=== PATIENT | male | born 1945 | race Caucasian/White ===

== ENCOUNTER → 2020-07-21 13:42 | Outpatient (ROUT) | payer MEDICARE, OTHER, SELFPAY ==
[2020-07-21 14:04] LABS: Aspartate Aminotransferase 26 IU/L (17-59); Blood Urea Nitrogen 16 mg/dL (9-20); Calcium 8.9 mg/dL (8.4-10.2); Carbon Dioxide 29 mmol/L (22-32); Chloride 103 mmol/L (98-107); Cholesterol 178 mg/dL (140-199); Estimated Glomerular Filt Rate > 60.0 mL/min (>60); Glucose 123 mg/dL (80-110); HDL Cholesterol 59 mg/dL (40-60); HEMOLYSIS < 15 (0-50); LDL Cholesterol Calculated 102 mg/dL (<100); Potassium 4.1 mmol/L (3.4-5.1); Sodium 136 mmol/L (137-145); Triglycerides 87 mg/dL (35-150)
[2020-07-21 14:05] LABS: Hemoglobin A1C% w Est Avg Glu 6.2 % (4.0-6.0)
[2020-07-21 14:31] LABS: Prostate Specific Antigen 2.84 ng/mL (0.10-4.00)
== END ==
PROVIDERS: Visit Provider Internal Medicine
DX: R73.01 Impaired fasting glucose (principal)
CPT/HCPCS: 80048; 80061; 83036; 84153; 84450

== ENCOUNTER → 2021-02-27 10:55 | Outpatient (CLI) | payer MEDICARE, OTHER, SELFPAY ==
[2021-02-27 13:36] LABS: COVID19 -Nasal RAPID Negative (Negative)
== END ==
PROVIDERS: PCP Internal Medicine; Visit Provider Student in an Organized Health Care Education/Training Program
DX: Z20.822 Contact with and (suspected) exposure to COVID-19 (principal); Z01.812 Encounter for preprocedural laboratory examination
CPT/HCPCS: 87635; C9803

== ENCOUNTER 2021-03-01 07:45 | Day surgery (SDC) | payer MEDICARE, OTHER, SELFPAY ==
[2021-03-01 08:15] VITALS: BP 127/74; PULSE 64; RESP 16; TEMP 36.4; O2SAT 99; BMI 26.4
--- NOTE | 2021-03-01 09:07 | PM.HP.1 ---
History of Present Illness History of Present Illness Chief complaint: SCREENING COLONOSCOPY Patient History Family & Social History Social History: household members spouse Tobacco & Substance use: Smoking Status Never smoker alcohol intake frequency a few times a month Substance Use Type does not use Meds Home Medications and Allergies Home Medications Medication Instructions Recorded Confirmed Type losartan 50 mg PO DAILY 03/01/21 03/01/21 History simvastatin 20 mg PO DAILY 03/01/21 03/01/21 History Allergies Allergy/AdvReac Type Severity Reaction Status Date / Time No Known Drug Allergies Allergy Verified 03/01/21 08:09 Review of Systems Review of Systems ROS: Yes All systems reviewed with the patient and are negative except as otherwise documented Exam Vital Signs (past 8 hours): - 03/01/21 08:15 Temperature 97.5 F L Pulse Rate 64 Respiratory Rate 16 Blood Pressure 127/74 Pulse Oximetry 99 Oxygen Delivery Method Room Air Narrative Exam Narrative: Awake alert and oriented x3, pupils equal round reactive to light, oropharynx clear, heart regular rate and rhythm, lungs clear to auscultation bilaterally, abdomen nontender and nondistended, extremities without edema, no gross neurologic deficits noted Assessment & Plan Assessment & Plan narrative: Colon cancer screening for colonoscopy COVID-19 COVID-19 status: Negative
[2021-03-01] MEDS: fentaNYL 250 MCG/5 ML INJ IV (09:13)
[2021-03-01] MEDS: MIDAZOLAM 5 MG/5 ML VIAL IV (09:13)
--- NOTE | 2021-03-01 09:28 | PM.OP.ENDO ---
Operative Date/Time/Diagnoses Date of procedure: 03/01/21 Procedure & Clinicians Study performed: Diagnostic colonoscopy Moderate conscious sedation was administered by the endoscopy nurse and supervised by the endoscopist. The following parameters were monitored: Oxygen saturation, heart rate, blood pressure, and response to care. 4 mg midazolam and 100 mcg fentanyl given. Same procedure as scheduled: Yes Indications: Colon cancer screening. Last colonoscopy was approximately 10 years ago. Procedure Notes Procedure in detail: Prior to the procedure, history and physical was performed, and patient medications and allergies were reviewed. Preprocedure nursing history and assessment was reviewed. Patient identification and proposed procedure were verified by the physician and nurse in the procedure room. The physical status of the patient was reassessed after the procedure. After informed consent was obtained including risks, benefits, and alternatives, the scope was passed under direct vision. Throughout the procedure, the patient's blood pressure, pulse, and oxygen saturations were monitored continuously. The colonoscope was introduced through the anus and advanced to the cecum as identified by the appendiceal orifice and ileocecal valve. The patient tolerated the procedure well. Bowel prep was deemed adequate to detect polyps greater than 5 mm. The perianal and digital rectal examinations were unremarkable. Retroflexion in the rectum was unrevealing. The entire examined colon was normal appearing. Impression: Normal appearing colon No specimens taken Sedation minutes: 15 Specimen(s): none sent Complications: other (EBL 0. No complications) Post-procedure Plan for aftercare: No recommendation with regards to repeating a colonoscopy for screening purposes given advanced age. Resume home medications Resume previous diet Patient has a contact number available for emergencies. The signs and symptoms of potential delayed complications were discussed with the patient. Return to normal activities tomorrow. Written discharge instructions were provided to the patient. Discharge home with escort
[2021-03-01 09:32] VITALS: BP 108/57; PULSE 62; RESP 12; TEMP 36.2; O2SAT 94
[2021-03-01 09:37] VITALS: BP 108/54; PULSE 62; RESP 12; O2SAT 93
[2021-03-01 09:42] VITALS: BP 112/58; PULSE 60; RESP 11; O2SAT 93
[2021-03-01 09:47] VITALS: BP 124/64; PULSE 73; RESP 14; TEMP 36.4; O2SAT 94
[2021-03-01 09:50] VITALS: BP 127/74; PULSE 64; RESP 14; TEMP 36.4; O2SAT 99
== END 2021-03-01 10:04 | disposition home or self-care (01) ==
PROVIDERS: PCP Internal Medicine; Referring Provider Internal Medicine; Visit Provider Internal Medicine
PROC: 0DJD8ZZ Inspection of Lower Intestinal Tract, Via Natural or Artificial Opening Endoscopic (ICD-10-PCS; CPT 45378; principal; 2021-03-01 09:00)
DX: Z12.11 Encounter for screening for malignant neoplasm of colon (principal)
CPT/HCPCS: G0121; J2250; J3010

== ENCOUNTER → 2022-02-23 09:03 | Outpatient (CLI) | payer MEDICARE, OTHER, SELFPAY ==
--- NOTE | 2022-02-23 | DI.RAD.S_ITS ---
PROCEDURE: FL BARIUM SWALLOW W SPEECH INDICATIONS: Other dysphagia COMPARISON: None. TECHNIQUE: Examination was conducted in conjunction with speech pathology per standard protocol. In the lateral projection, filming was performed of the patient swallowing. AP projection filming may also be performed with patient swallowing. COMPARISON: FINDINGS: Function: The oral preparatory phase appears normal, with proper containment. The subsequent oral propulsive phase, pharyngeal phase, and esophageal phase of swallowing also appear normal with all proffered substances. No laryngotracheal penetration or aspiration. No pathologic vallecular pooling. There appears to be a moderate hiatal hernia. There is esophageal dysmotility. A swallowed radiopaque tablet did not readily passed into the gastric lumen, with holdup in the distal esophagus. There is irregularity of the mucosal surface of the gastroesophageal junction. Morphology: No cricopharyngeal bar is identified. No cervical esophageal webs. No Zenker's diverticulum. No strictures. IMPRESSION: 1. No evidence of laryngeal penetration, or aspiration. 2. Hiatal hernia. 3. Irregularity of the mucosa at the gastroesophageal junction. Initial further assessment with endoscopy is recommended, to assess for neoplasm. Dictated by: Asim Segura M.D. on 02/23/2022 at 10:33 Approved by: Asim Segura M.D. on 02/23/2022 at 10:35
--- NOTE | 2022-02-23 10:52 | ST.SWALLOW ---
Visit Care Team Role Provider Type Devon Lundberg MD Primary Care Provider Physician Specialty: Internal Medicine Address: [address] [place] [address], [id number] Email: [email or web address] Cosmo Ruffin MD Attending Provider Physician Referring Provider Specialty: Ear, Nose, Throat Address: [address] [place] [address], [id number] Email: [email or web address] Modified Barium Swallow Study [employer] REFEREE Modified Barium Swallow Study Start: 02/23/22 10:21 Freq: Status: Active Protocol: Document 02/23/22 10:22 ZS (Rec: 02/23/22 10:52 ZS [id number]) Modified Barium Swallow Study Total Time Visit Start Time 09:30 Visit Stop Time 09:50 Total Visit Minutes 20 Visit Information Visit Number Initial Evaluation Insurance Information Medicare Referral Referring Physician Dr. Cosmo Ruffin Reason for Referral Bread and other carbohydrates getting caught in throat Setting Setting Outpatient Care Patient Information Identification Type Name Patient History Nguyễn is a 77 year old male who reported difficulty with swallowing bread and other carbohydrate consistencies. He stated these textures feel like they get caught in his throat and gestured to his base of neck/upper chest area. Nguyễn indicated it helps when he has some cold water prior to eating these consistencies and that he has not experienced as much difficulty with swallowing since he returned from [place]. Nguyễn reported no difficulty swallowing liquids. Subjective Observations Nguyễn was alert, cooperative, and agreed to participate in swallow study. Provided education regarding swallow study procedures and what to expect, to which Nguyễn indicated understanding. Patient Positioning Position View Lat-A/P Imaging Lateral View Textures Administered Trials Presented Thin Liquid via Cup,Pudding Thick Liquid via Spoon,Regular Textures Oral Phase Source: MBSIMP (TM) (C) Bolus Specific Scoring Grid Lip Closure No Impairment (WNL) Tongue Control During Bolus Hold Minimal Impairment Bolus Prep/Mastication No Impairment (WNL) Bolus Transport/Lingual Motion No Impairment (WNL) A/P Lingual Propulsion Delay No Oral Residue Mild Impairment Residue Clearing No Impairment (WNL) Nasal Regurgitation No Additional Oral Phase Observations Pt exhibited lip closure, mastication, and bolus transport WNL. Minimal posterior loss of bolus to base of tongue during tongue hold and this was only observed on the first trial. All other tongue holds exhibited no posterior loss of bolus. Mild oral residue observed following swallow, which pt cleared independently . Pharyngeal Phase Source: MBSIMP (TM) (C) Bolus Specific Scoring Grid Delayed Initiation of Pharyngeal Swallow Yes: bolus head at epiglottis Soft Palate Elevation No Impairment (WNL) Tongue Base Strength/Range of Motion No Impairment (WNL) Residue Along the Tongue Base No Laryngeal Elevation No Impairment (WNL) Anterior Hyoid Movement No Impairment (WNL) Epiglottic Range of Motion No Impairment (WNL) Vallecular Residue Yes: following solid trials only Clearance of Vallecular Residue WFL Laryngeal Vestibular Closure No Impairment (WNL) Pharyngeal Stripping Wave No Impairment (WNL) Pharyngeal Contraction No Impairment (WNL) Posterior Pharyngeal Wall Residue No Upper Esophageal Sphincter Opening No Impairment (WNL) Residue in the Pyriform Sinuses No Esophageal Clearance Upright Position Mild Impairment Pharyngoesophageal Backflow Observed Yes: minimal retrograde flow below PES Additional Pharyngeal Phase Observations Delayed initiation of swallow observed, with head of bolus at the level of the epiglottis . Laryngeal vestibular closure , anterior hyoid movement, and epiglottic movement were all WNL. No instances of aspiration or penetration observed. Mild residue observed in valleculea following solid trials, which was cleared with a second swallow. A/P View Textures Administered Trials Presented Thin Liquid via Cup,Regular Textures,Barium Tablet A/P View Observations Pharyngeal Contraction No Impairment (WNL) Esophageal Function Slowed Clearing Esophageal Clearance Upright Position Mild Impairment Esophageal Observations Esophageal Function Slowed movement of bolus through esophagus across all textures, with minimal retrograde flow below the level of the PES. All trials, except the tablet, had cleared the esophagus before the start of the next trial. The tablet did not clear the pt's esophagus by the end of the assessment, despite repeated swallows with water. Clinical Impressions Findings The pt presents with swallow function WNL. A mild delay in pharyngeal swallow initiation was present, though pt had appropriate airway protection despite delay. Residue observed in oral cavity and in valleculea, which pt cleared WFL. Slowed movement of bolus through esophagus across all trials, though each texture cleared, with the exception of the tablet, prior to the start of the following trial. Carbohydrate consistencies may present with further slowed movement due to tendency to form a more solid bolus than other food textures, and may be the cause of pt's discomfort. Recommended smaller bites of carbohydrate consistencies with liquid wash in between bites to aid in flow of bolus through esophagus. Pt may choose to pursue GI referral if he continues to have difficulty. Rehabilitation Potential Good Patient Appropriate for Therapy No Recommendations Diet Liquids Order Thin Diet Order Regular Medication Recommendation As Tolerated Aspiration Precautions Recommended Precautions Upright at 90 Degrees, Alternate Liquids/Solids,Small Bites/Sips Treatment Plan Recommended Referrals GI Consult Compensatory Strategies Recommendations Sitting Upright (90 deg),Small Bites and Sips,Alternate Liquids/Solids Placement Recommendation After Discharge Home
== END ==
PROVIDERS: PCP Internal Medicine; Referring Provider Otolaryngology; Visit Provider Otolaryngology
DX: R13.19 Other dysphagia (principal); K44.9 Diaphragmatic hernia without obstruction or gangrene
CPT/HCPCS: 74230; 92611

== ENCOUNTER → 2022-05-18 09:19 | Outpatient (CLI) | payer MEDICARE, OTHER, SELFPAY ==
[2022-05-18 11:27] LABS: COVID19 -Nasal RAPID Negative (Negative)
== END ==
PROVIDERS: PCP Internal Medicine; Visit Provider Surgery
DX: Z01.812 Encounter for preprocedural laboratory examination (principal); Z20.822 Contact with and (suspected) exposure to COVID-19
CPT/HCPCS: 87635; C9803

== ENCOUNTER 2022-05-21 07:53 | Day surgery (SDC) | payer MEDICARE, OTHER, SELFPAY ==
--- NOTE | 2022-05-21 | PATH_ITS ---
[facility] Accession Number: [id number] . 01 Material submitted: . PART A: duodenum - DUODENAL BIOPSY PART B: stomach - ANTRUM BIOPSY PART C: gastrointestinal site - GASTRIC POLYPS PART D: esophagus, E-G Junction - GE JUNCTION . 01 Diagnosis: A. Duodenum, Biopsy: Duodenal adenoma. No high-grade dysplasia or malignancy. See comment. . B. Antrum, Biopsy: Gastric mucosa with mild chronic inflammation. No evidence of Helicobacter pylori organisms on immunohistochemical evaluation. No evidence of intestinal metaplasia, dysplasia or malignancy. . C. Gastric Polyps, Biopsy: Fundic gland polyps. No evidence of Helicobacter pylori organisms on immunohistochemical evaluation. No evidence of intestinal metaplasia, dysplasia or malignancy. . D. GE Junction, Biopsy: Squamous mucosa with changes consistent with reflux alterations. No evidence of infectious organisms. No dysplasia or malignancy. [facility] 05/24/2022 1141 Local . 01 Comment: A. As part of ongoing vice president quality, this case is also reviewed by Dr. Dr. Jignesh Ayala, who concurs with the given interpretation. . 01 Electronically signed: . Stacie Mauricio MD, Pathologist NPI- [id number] . 01 Gross description: . Part A: DUODENAL BIOPSY: Received in formalin is 1 fragment(s) of savage, soft tissue measuring 0.3 x 0.2 x 0.2 cm submitted entirely in 1 cassette(s) Part B: ANTRUM BIOPSY: Received in formalin are 2 fragment(s) of savage, soft tissue measuring 0.2 x 0.2 x 0.2 cm to 0.3 x 0.2 x 0.2 cm submitted entirely in 1 cassette(s) Part C: GASTRIC POLYPS: Received in formalin are 4 fragment(s) of savage, soft tissue measuring 0.2 x 0.2 x 0.2 cm to 0.3 x 0.3 x 0.2 cm submitted entirely in 1 cassette(s) Part D: GE JUNCTION: Received in formalin are 3 fragment(s) of savage, soft tissue measuring 0.1 x 0.1 x 0.1 cm to 0.3 x 0.1 x 0.1 cm submitted entirely in 1 cassette(s) /[facility] 05/22/2022 0055 Local . 01 Microscopic: . B, C. An immunohistochemical stain was performed to evaluate for Helicobacter organisms and is negative. The control stain showed appropriate reactivity. . D. A PASF special stain was performed to evaluate for fungal organisms and is negative. The control stain showed appropriate reactivity. . . Technical Note: This test and its performance characteristics have been determined by [facility]. It has not been cleared or approved by the U.S. Food and Drug Administration. The FDA has determined that such clearance or approval is not necessary. This test is used for clinical purposes. It should not be regarded as investigational or for research. . 01 Pathologist provided ICD-10: K29.70, D13.2, D13.1 . 01 CPT . 663329, 501368, 344300, 361108, [id number], [id number] Specimen Comment: A courtesy copy of this report has been sent to [phone] Performed at: [address] [place] [address] [address] [place] [address], [place], [place] [id number] MD Jignesh Webb MD Phone: [phone]
[2022-05-21 08:40] VITALS: BP 157/72; PULSE 63; RESP 16; TEMP 36.1; O2SAT 96; BMI 28.9
[2022-05-21] MEDS: SODIUM CHLORIDE 0.9% 1,000 ML 84 ML IV (08:46)
--- NOTE | 2022-05-21 09:17 | PM.HP.1 ---
History of Present Illness History of Present Illness Date Patient Seen: 05/21/22 Time Patient Seen: 09:18 Chief complaint: EGD W/POSS BX & DILATION Narrative: I reviewed the note from May [address] Orta. No significant changes. Patient History Medical History Abnormal barium swallow Hepatitis A (~1968) Hiatal hernia Hyperlipidemia Hypertension Surgical History Anesthesia Broken arm (~2004) History of tonsillectomy (~1950) Family & Social History Family History Father Parkinson's disease Mother No problems noted. Brother Prostate cancer Sister Ovarian cancer Grandfather Stroke Grandmother Stroke Grandfather Stroke Social History: household members spouse Tobacco & Substance use: Smoking Status Never smoker alcohol intake frequency a few times a month Substance Use Type does not use Meds Home Medications and Allergies Home Medications Medication Instructions Recorded Confirmed Type losartan 50 mg tablet 50 mg PO DAILY 03/01/21 05/21/22 History simvastatin 20 mg tablet 20 mg PO DAILY 03/01/21 05/21/22 History albuterol sulfate 90 mcg/actuation See Rx Instructions .Route .COMPLEX 03/06/22 05/21/22 History aerosol inhaler (ProAir HFA) sildenafil 50 mg tablet 50 mg PO PRN PRN prn 03/06/22 05/21/22 History triamcinolone acetonide 55 mcg 2 spray intranasal DAILY 03/06/22 05/21/22 History nasal spray aerosol (Nasacort) Allergies Allergy/AdvReac Type Severity Reaction Status Date / Time No Known Drug Allergies Allergy Verified 05/21/22 08:38 Review of Systems Review of Systems ROS: Yes All systems reviewed with the patient and are negative except as otherwise documented Exam Vital Signs (past 8 hours): - 05/21/22 08:40 Temperature 96.9 F L Pulse Rate 63 Respiratory Rate 16 Blood Pressure 157/72 H Pulse Oximetry 96 Oxygen Delivery Method Room Air Oxygen Flow Rate 0 Oxygen Delivery Method Room Air Oxygen Flow Rate 0 Const General: cooperative HENMT Head: normal to inspection Eyes General: appearance normal, both eyes and all related structures Neck Neck: normal visual inspection Chest Chest: normal inspection of the chest Resp Effort & Inspection: normal respiratory effort Cardio Rate: regular rate GI Inspection: normal to inspection Skin General: no rashes or lesions noted Neuro General: patient alert and patient awake Extrem General: normal to inspection and no pedal edema Psych Appearance: grossly normal Assessment & Plan Assessment & Plan narrative: 77-year-old male with dysphagia abnormal contrast imaging. EGD is pursued today. Time Spent With Patient Critical Care time: I spent a total of [] minutes of critical care time on this patient's care today; this time is exclusive of procedural time.
--- NOTE | 2022-05-21 09:19 | PM.PREOP ---
Pre-operative Note COVID-19 COVID-19 status: Negative Result date/Date tested (Pos, Neg/Pending): 05/18/22 Criteria for continued procedure: Possibility delay results in more complex future surgery or treatment Interval Note History & Physical reviewed/Exam performed by Physician: Yes Changes to H&P: No ASA Class (for procedural sedation): II
--- NOTE | 2022-05-21 10:21 | PM.OP.EGD ---
Operative Date/Time/Diagnoses Date of procedure: 05/21/22 Time of procedure: 10:22 Pre-op diagnosis: Dysphagia Post-op diagnosis: same Procedure & Clinicians Study performed: EGD with biopsies Same procedure as scheduled: Yes Indications: Dysphagia Surgeon: Ran Shaw Procedure Notes SCOAP/Timeout: Done Procedure in detail: After the risks and benefits were explained, written and verbal informed consent was obtained. The patient was brought into the procedure room and placed into the left lateral decubitus position. Please see nurse agricultural education professor notes for sedation details. The scope was introduced into the mouth through the bite block and advanced under direct visualization to the 2nd portion of the duodenum. The scope was slowly withdrawn carefully examining the mucosa for any defects or lesions. Retroflexed views were accomplished in the stomach. The stomach was decompressed, the scope was then removed from the patient who tolerated the procedure well. Sedation minutes: 19 Complications: none Impression: 1. Duodenum: No significant mucosal pathology was appreciated throughout. However there was a small possible nodule in the 2nd portion of the duodenum and this was targeted for biopsy. 2. Stomach: Patient had a mild diffusely erythematous gastropathy. Biopsies were taken from the antrum for exclusion of Helicobacter infection. There were several scattered diminutive polyps in the body and fundus. A few of these were sampled for histopathologic analysis. Retroflexed views of the LES disclosed a small sliding hiatal hernia. 3. Esophagus: The squamocolumnar junction correlated with the top of the gastric folds. The GEJ was at about 34 cm from the incisors. The diaphragmatic pinchcock was at approximately 36 cm from the incisors. The patient had evidence of LA grade a erosive esophagitis and the mucosa on the cardia side of the GE junction appeared inflamed and irritated. I took several disruptive biopsies from the level of the GE junction which was characterized by a subtle non obstructing Schatzki's ring as well. The remainder of the esophagus was unremarkable. Endoscopic diagnosis 1. 2 cm hiatal hernia 2. LA grade A erosive esophagitis 3. Nonobstructing Schatzki's status post disruptive biopsies 4. Gastric polyps 5. Gastropathy 6. Duodenal nodule Post-procedure Plan for aftercare: 1. Await histopathology 2. Initiate omeprazole 20 mg daily. 3. Repeat EGD in 8 weeks to confirm mucosal healing and pursue biopsies of any persistent abnormalities at the GE junction/cardia. Disposition: PACU
[2022-05-21 10:27] VITALS: BP 106/63; PULSE 60; RESP 18; TEMP 37.1; O2SAT 94
[2022-05-21 10:31] VITALS: BP 112/68; PULSE 59; RESP 16; O2SAT 94
[2022-05-21 10:37] VITALS: BP 121/63; PULSE 63; RESP 18; O2SAT 96
--- NOTE | 2022-05-21 10:43 | SUR.PHASEI ---
Dr. Garcia came in to see pt. and talked to him. Pt states he understands everything.
[2022-05-21 10:44] VITALS: BP 117/76; PULSE 63; RESP 18; TEMP 36.6; O2SAT 95
== END 2022-05-21 10:59 | disposition home or self-care (01) ==
PROVIDERS: PCP Internal Medicine; Referring Provider Internal Medicine Gastroenterology; Visit Provider Internal Medicine Gastroenterology
PROC: 0DJ08ZZ Inspection of Upper Intestinal Tract, Via Natural or Artificial Opening Endoscopic (ICD-10-PCS; CPT 43235; principal; 2022-05-21 09:30)
DX: R13.10 Dysphagia, unspecified (principal); I10 Essential (primary) hypertension; J45.909 Unspecified asthma, uncomplicated; K44.9 Diaphragmatic hernia without obstruction or gangrene; K20.90 Esophagitis, unspecified without bleeding; K22.2 Esophageal obstruction; K31.9 Disease of stomach and duodenum, unspecified; K31.7 Polyp of stomach and duodenum; K29.50 Unspecified chronic gastritis without bleeding; D36.7 Benign neoplasm of other specified sites
CPT/HCPCS: 43239; J2704; J3010

== ENCOUNTER 2022-06-05 09:13 | Emergency (ER) | payer MEDICARE, OTHER, SELFPAY ==
[2022-06-05 09:18] VITALS: BP 180/84; PULSE 62; RESP 14; TEMP 36.6; O2SAT 96; BMI 28.5
[2022-06-05 09:19] VITALS: BP 180/84; PULSE 62; O2SAT 97
--- NOTE | 2022-06-05 09:22 | DI.RAD.S_ITS ---
PROCEDURE: XR CHEST 1V INDICATIONS: chest pain TECHNIQUE: One view of the chest was acquired. COMPARISON: None. FINDINGS: Surgical changes and devices: None. Lungs and pleura: Lungs are clear. No pleural effusions or pneumothorax. Mediastinum: Mediastinal contours appear normal. Heart size is normal. Bones and chest wall: No suspicious bony lesions. Overlying soft tissues appear unremarkable. IMPRESSION: No acute cardiopulmonary findings. Dictated by: Stephanie Bautista M.D. on 06/05/2022 at 9:49 Approved by: Stephanie Bautista M.D. on 06/05/2022 at 9:49
[2022-06-05 09:30] VITALS: BP 168/76; PULSE 63; RESP 20; O2SAT 98
[2022-06-05 09:45] LABS: Add Manual Diff / Slide Review NO; Basophils Absolute Auto 100 /uL (0-100); Basophils Percent Auto 0.7 % (0-2); Eosinophils Absolute Auto 300 /uL (0-450); Eosinophils Percent Auto 3.7 % (2-4); Hematocrit 44.3 % (41-53); Hemoglobin 15.4 g/dL (13.5-17.5); Lymphocytes Absolute Auto 1500 /uL (1100-4500); Lymphocytes Percent Auto 21.9 % (25-40); Mean Corpuscular HGB Conc 34.8 % (30-36); Mean Corpuscular Hemoglobin 29.2 PG (26-34); Monocytes Absolute Auto 600 /uL (0-900); Neutrophils Absolute Auto 4500 /uL (1500-7000); Neutrophils Percent Auto 65.7 % (50-75); Platelet Count 190 X10^3/uL (150-400); Red Blood Cell Count 5.28 X10^6/uL (4.5-5.9); Red Cell Distribution Width 13.5 % (11.6-14.8); White Blood Cell Count 6.9 X10^3/uL (4.5-11.0)
[2022-06-05 09:54] LABS: INR 0.9 (0.9-1.3); Prothrombin Time 10.7 SECONDS (10.1-12.7)
--- NOTE | 2022-06-05 09:54 | ED_ITS ---
HPI - Dizziness General Chief Complaint: Dizziness Stated Complaint: Dizzy spell Time Seen by Provider: 06/05/22 09:40 Source: patient Mode of arrival: Wheelchair History of Present Illness HPI Narrative: This 77-year-old gentleman with hypercholesterolemia and hypertension only comes to the emergency department today with dizziness. Says that began about 5 days ago while he was on a trip to [place] and noticed that while he was lying in bed he felt quite dizzy but then when he would get up it would extinguish and feel back to normal for the rest of the day. Today however when he arose the dizziness was much more prominent and it does not seem to be extinguishing. He says he feels a little bit better when he holds still but he still feels a swimming sensation and dizziness sensation with movement or sitting up. He does not have any injury, no other illness no fever no cough no headache no neck pain. No previous stroke. No cigarette smoking. No nausea. Related Data Home Medications Medication Instructions Recorded Confirmed losartan 50 mg tablet 50 mg PO DAILY 03/01/21 05/21/22 simvastatin 20 mg tablet 20 mg PO DAILY 03/01/21 05/21/22 albuterol sulfate 90 mcg/actuation See Rx Instructions .Route .COMPLEX 03/06/22 05/21/22 aerosol inhaler (ProAir HFA) sildenafil 50 mg tablet 50 mg PO PRN PRN prn 03/06/22 05/21/22 triamcinolone acetonide 55 mcg 2 spray intranasal DAILY 03/06/22 05/21/22 nasal spray aerosol (Nasacort) Previous Rx's Medication Instructions Recorded meclizine 25 mg tablet 25 mg PO BID PRN dizziness #10 tabs 06/05/22 Allergies Allergy/AdvReac Type Severity Reaction Status Date / Time No Known Drug Allergies Allergy Verified 06/05/22 09:23 Review of Systems Review of Systems Narrative: Complete review of systems is negative other than as noted above. Patient History Medical History Abnormal barium swallow Hepatitis A (~1968) Hiatal hernia Hyperlipidemia Hypertension Surgical History Anesthesia Broken arm (~2004) History of tonsillectomy (~1950) Family History Father Parkinson's disease Mother No problems noted. Brother Prostate cancer Sister Ovarian cancer Grandfather Stroke Grandmother Stroke Grandfather Stroke Social History household members: spouse Smoking Status: Never smoker Smoking Status: Never smoker alcohol intake frequency: holidays/special occasions only Substance Use Type: does not use Exam Narrative Exam Narrative: GENERAL: Alert, cooperative and in no distress. HEAD: Atraumatic. Normocephalic. EYES: Sclera are clear without icterus. Extraocular movements are full. ENT: No rhinorrhea. Oropharynx is moist. Mouth exam is benign. NECK: Supple. Full range of motion. CARDIOVASCULAR: Normal rate and rhythm without murmur gallop or rub. RESPIRATORY: Clear to auscultation. Breath sounds equal bilaterally. No wheezes, rales, or rhonchi. GASTROINTESTINAL: Abdomen soft, non-tender, nondistended. EXTREMITIES: No edema, full range of motion. No obvious trauma. BACK: Normal inspection, no CVA tenderness. NEURO: Hallpike maneuver reveals no nystagmus. He has a wide-based gait and seems unsteady when he is trying to walk. SKIN: No rash or erythema of visible areas PSYCH: Normally oriented. Normal range of affect. Appropriate behavior Initial Vital Signs Initial Vital Signs: Vital Signs Temperature 97.9 F 06/05/22 09:18 Pulse Rate 62 06/05/22 09:18 Respiratory Rate 14 06/05/22 09:18 Blood Pressure 180/84 H 06/05/22 09:18 Pulse Oximetry 96 06/05/22 09:18 Oxygen Delivery Method 06/05/22 09:18 Course Course Course Narrative: His physical examination does not fit precisely with benign positional vertigo and therefore I think it is incumbent upon me to prove that he does not have a posterior circulation stroke. Will order stroke protocol MRI. Orders Ordered: ED Orders 06/05/22 09:22 XR chest 1V Stat 06/05/22 09:27 EKG-12 Lead Stat 06/05/22 09:35 Complete Blood Count AUTO DIFF Stat Comprehensive Metabolic Panel Stat Lipase Stat Magnesium Stat Partial Thromboplastin Time Stat Prothrombin Time INR Stat Troponin & CK Cardiac Panel Stat 06/05/22 09:46 COVID19 -Nasal RAPID/Pre-Proc Stat 06/05/22 09:56 MR stroke Stat Vital Signs Vital signs: Vital Signs - 8 hr 06/05/22 09:18 06/05/22 09:19 06/05/22 09:19 Temperature 97.9 F Pulse Rate 62 62 Respiratory Rate 14 Blood Pressure 180/84 H 180/84 H Pulse Oximetry 96 97 Oxygen Delivery Method Room Air 06/05/22 09:30 06/05/22 09:30 Temperature Pulse Rate 63 Respiratory Rate 20 Blood Pressure 168/76 H Pulse Oximetry 98 Oxygen Delivery Method MDM - Dizziness Lab Data Result diagrams: 06/05/22 09:35 06/05/22 09:35 Labs: Lab Results 06/05/22 06/05/22 06/05/22 Range/Units 09:35 09:35 09:35 WBC 6.9 (4.5-11.0) X10^3/uL RBC 5.28 (4.5-5.9) X10^6/uL Hgb 15.4 (13.5-17.5) g/dL Hct 44.3 (41-53) % MCV 84.0 (80-100) fL MCH 29.2 (26-34) PG MCHC 34.8 (30-36) % RDW 13.5 (11.6-14.8) % Plt Count 190 (150-400) X10^3/uL Neut % (Auto) 65.7 (50-75) % Lymph % (Auto) 21.9 L (25-40) % [place] % (Auto) 8.0 (3-14) % Eos % (Auto) 3.7 (2-4) % Baso % (Auto) 0.7 (0-2) % Neut # (Auto) 4500 (7298-1690) /uL Lymph # (Auto) 1500 (6905-7015) /uL [place] # (Auto) 600 (0-900) /uL Eos # (Auto) 300 (0-450) /uL Baso # (Auto) 100 (0-100) /uL PT 10.7 (10.1-12.7) SECONDS INR 0.9 (0.9-1.3) APTT 26 (26-36) SECONDS Sodium 136 L (137-145) mmol/L Potassium 3.8 (3.4-5.1) mmol/L Chloride 103 (98-107) mmol/L Carbon Dioxide 27 (22-32) mmol/L BUN 16 (9-20) mg/dL Creatinine 0.99 (0.66-1.25) mg/dL Estimated GFR > 60 (>60) mL/min BUN/Creatinine Ratio 16.2 (6-22) Glucose 132 H (80-110) mg/dL Calcium 8.8 (8.4-10.2) mg/dL Magnesium 1.9 (1.6-2.3) mg/dL Total Bilirubin 1.0 (0.2-1.3) mg/dL AST 25 (17-59) IU/L ALT 17 (<50) IU/L Alkaline Phosphatase 59 (38-126) U/L Total Creatine Kinase 52 L (55-170) U/L CK-MB (CK-2) TNP CK-MB (CK-2) Rel Index TNP Troponin I < 0.012 (0.01-0.034) ng/mL Total Protein 7.2 (6.3-8.2) g/dL Albumin 4.0 (3.5-5.0) g/dL Globulin 3.2 (1.7-4.1) g/dL Albumin/Globulin Ratio 1.3 (1.0-2.8) Lipase 124 (23-300) U/L SARS-CoV-2 (PCR) (Negative) 06/05/22 Range/Units 09:46 WBC (4.5-11.0) X10^3/uL RBC (4.5-5.9) X10^6/uL Hgb (13.5-17.5) g/dL Hct (41-53) % MCV (80-100) fL MCH (26-34) PG MCHC (30-36) % RDW (11.6-14.8) % Plt Count (150-400) X10^3/uL Neut % (Auto) (50-75) % Lymph % (Auto) (25-40) % [place] % (Auto) (3-14) % Eos % (Auto) (2-4) % Baso % (Auto) (0-2) % Neut # (Auto) (1729-2159) /uL Lymph # (Auto) (9751-6075) /uL [place] # (Auto) (0-900) /uL Eos # (Auto) (0-450) /uL Baso # (Auto) (0-100) /uL PT (10.1-12.7) SECONDS INR (0.9-1.3) APTT (26-36) SECONDS Sodium (137-145) mmol/L Potassium (3.4-5.1) mmol/L Chloride (98-107) mmol/L Carbon Dioxide (22-32) mmol/L BUN (9-20) mg/dL Creatinine (0.66-1.25) mg/dL Estimated GFR (>60) mL/min BUN/Creatinine Ratio (6-22) Glucose (80-110) mg/dL Calcium (8.4-10.2) mg/dL Magnesium (1.6-2.3) mg/dL Total Bilirubin (0.2-1.3) mg/dL AST (17-59) IU/L ALT (<50) IU/L Alkaline Phosphatase (38-126) U/L Total Creatine Kinase (55-170) U/L CK-MB (CK-2) CK-MB (CK-2) Rel Index Troponin I (0.01-0.034) ng/mL Total Protein (6.3-8.2) g/dL Albumin (3.5-5.0) g/dL Globulin (1.7-4.1) g/dL Albumin/Globulin Ratio (1.0-2.8) Lipase (23-300) U/L SARS-CoV-2 (PCR) Negative (Negative) Imaging Data Chest x-ray: Radiologist's Impression: PROCEDURE:? XR CHEST 1V ? INDICATIONS:? chest pain ? TECHNIQUE:? One view of the chest was acquired.? ? COMPARISON:? None. ? FINDINGS:? ? Surgical changes and devices:? None.? ? Lungs and pleura:? Lungs are clear.? No pleural effusions or pneumothorax.? ? Mediastinum:? Mediastinal contours appear normal.? Heart size is normal.? ? Bones and chest wall:? No suspicious bony lesions.? Overlying soft tissues appear unremarkable.? ? IMPRESSION:? No acute cardiopulmonary findings. ? ? Dictated by: Stephanie Bautista M.D. on 06/05/2022 at 9:49 ? ? Approved by: Stephanie Bautista M.D. on 06/05/2022 at 9:49 ? Extremity x-ray #3: Radiologist's Impression: Stroke protocol MRI: IMPRESSION:? ? BRAIN MRI:? ? 1. No acute intracranial findings.? Specifically, no increased restricted diffusion to suggest acute or subacute infarct. ? 2. Mild findings likely associated with chronic microvascular ischemic changes.? ? BRAIN MR ANGIOGRAM:? ? 1. No stenosis, occlusion, or aneurysm.? ? NECK MR ANGIOGRAM:? ? 1. Mild stenosis at the origin of the right internal carotid artery (less than 50%).? No other stenosis, occlusion, or aneurysm. ? ? Dictated by: Stephanie Bautista M.D. on 06/05/2022 at 11:13 ? ? Approved by: Stephanie Bautista M.D. on 06/05/2022 at 11:22 ? ECG Data Interpretation: ECG obtained at 9:27 a.m. reveals sinus rhythm at 60 beats per minute. QTC is 414. LVH is present. No acute ST or T-wave changes. MDM Narrative Medical decision making narrative: His symptoms and physical examination were not entirely consistent with BPPV so I felt that MR imaging was necessary to exclude posterior circulation stroke. This is now excluded. Back to the diagnosis of BPPV. Discharge Plan Departure Patient Disposition: Home Clinical Impression: Benign paroxysmal positional vertigo Instructions: DI for Vertigo Activity Restrictions/Additional Instructions: Fortunately, your MRI is completely normal. No evidence of posterior circulation stroke or any other abnormality. You have a minimal restriction of the blood flow in the carotid arteries which does not require any treatment nor is it related to the symptoms you are experiencing today. Use meclizine as needed for nausea and dizziness. Follow-up with your doctor in a few days if symptoms are not improving. Prescriptions: New meclizine 25 mg tablet 25 mg PO BID PRN (Reason: dizziness) Qty: 10 0RF No Action sildenafil 50 mg tablet 50 mg PO PRN PRN (Reason: prn) albuterol sulfate [ProAir HFA] 90 mcg/actuation HFA aerosol inhaler See Rx Instructions .ROUTE .COMPLEX Rx Instructions: prn triamcinolone acetonide [Nasacort] 55 mcg aerosol,spray 2 spray intranasal DAILY Rx Instructions: administer into each nostril losartan 50 mg tablet 50 mg PO DAILY simvastatin 20 mg tablet 20 mg PO DAILY Referrals: Devon Lundberg MD [Primary Care Provider] -
--- NOTE | 2022-06-05 09:56 | DI.MRI.S_ITS ---
PROCEDURE: MR STROKE Pre- and post-contrast brain MRI, non-contrast brain MR angiogram, pre- and postcontrast neck MR angiogram INDICATIONS: Posterior circulation stroke TECHNIQUE: Brain: Noncontrast axial T1 spin echo, axial T2 fast spin echo, sagittal and axial FLAIR, coronal T2 fast spin echo, axial gradient echo, axial diffusion and ADC through the brain. After the administration of contrast, axial 3D VIBE of the cranial vasculature and brain. Brain MRA: Non-contrast 3-D time of flight MR angiogram, with multiple mshgivb-zujjfvpjb-qptbkbqrve (MIP) reformats performed. Neck MRA: Axial and sagittal TruFISP through the neck. Coronal dynamic MR angiogram during administration of contrast in the arterial and venous phases, with 3-dimenstional vxbfqbn-twajoulwg-ikmlbfciqf (MIP) reformats constructed from subtraction images. COMPARISON: None. FINDINGS: Image quality: Excellent. BRAIN: CSF spaces: Ventricles are normal in size and shape. Basal cisterns are patent. No extra-axial fluid collections. Brain: No intracranial bleeds or mass effects. [place]-white matter interface is normal. Diffusion weighted images show no acute ischemic insults. There are scattered foci of T2/FLAIR signal hyperintensity suggesting chronic microvascular ischemic changes. Brainstem appears normal. Normal intravascular flow voids are present. No abnormal intracranial enhancement. Skull and face: Calvarial marrow signal is normal. Orbits appear normal. Sinuses: Sinuses and mastoids are clear. BRAIN MR ANGIOGRAM: Anterior circulation: Intracranial internal carotid arteries are normal in size and enhancement. The flow within the paired anterior cerebral arteries is normal and symmetric. The flow within the middle cerebral arteries is normal and symmetric. The anterior communicating artery is not seen. No stenoses, occlusions, or aneurysms. Posterior circulation: The visualized portions of the vertebral arteries demonstrate normal caliber, and join to form a normal appearing basilar artery. The flow within the posterior cerebral arteries is normal and symmetric. No stenoses, occlusions, or aneurysms. NECK MR ANGIOGRAM: Carotids: Great vessels demonstrate a conventional anatomy as they arise from the aortic arch. The origins of the common carotid arteries appear patent. The calibers and courses of both common carotid arteries are normal. The bifurcation regions appear normal bilaterally. There is likely mild stenosis at the origin of the right internal carotid artery. The left internal carotid artery is patent throughout. Posterior circulation: The origins of the vertebral arteries appear patent. More superior portions of both vertebral arteries demonstrate normal course and caliber, and join to form a normal appearing basilar artery. Miscellaneous: Subclavian arteries appear patent. Pre-contrast images through the neck show no soft tissue abnormalities. IMPRESSION: BRAIN MRI: 1. No acute intracranial findings. Specifically, no increased restricted diffusion to suggest acute or subacute infarct. 2. Mild findings likely associated with chronic microvascular ischemic changes. BRAIN MR ANGIOGRAM: 1. No stenosis, occlusion, or aneurysm. NECK MR ANGIOGRAM: 1. Mild stenosis at the origin of the right internal carotid artery (less than 50%). No other stenosis, occlusion, or aneurysm. Dictated by: Stephanie Bautista M.D. on 06/05/2022 at 11:13 Approved by: Stephanie Bautista M.D. on 06/05/2022 at 11:22
[2022-06-05 09:57] LABS: PTT Partial Thromboplastin Tim 26 SECONDS (26-36)
[2022-06-05 10:00] LABS: Alanine Aminotransferase 17 IU/L (<50); Albumin Globulin Ratio 1.3 (1.0-2.8); Alkaline Phosphatase 59 U/L (38-126); Aspartate Aminotransferase 25 IU/L (17-59); BUN Creatinine Ratio 16.2 (6-22); Blood Urea Nitrogen 16 mg/dL (9-20); Calcium 8.8 mg/dL (8.4-10.2); Carbon Dioxide 27 mmol/L (22-32); Chloride 103 mmol/L (98-107); Creatine Kinase 52 U/L (55-170); Estimated Glomerular Filt Rate > 60 mL/min (>60); Globulin 3.2 g/dL (1.7-4.1); Glucose 132 mg/dL (80-110); HEMOLYSIS 19 (0-50); Lipase 124 U/L (23-300); Magnesium 1.9 mg/dL (1.6-2.3); Potassium 3.8 mmol/L (3.4-5.1); Sodium 136 mmol/L (137-145); Total Protein 7.2 g/dL (6.3-8.2)
[2022-06-05 10:04] LABS: COVID19 -Nasal RAPID Negative (Negative)
[2022-06-05 10:12] LABS: Troponin I < 0.012 ng/mL (0.01-0.034)
[2022-06-05 11:39] VITALS: PULSE 61; O2SAT 98
[2022-06-05 11:40] VITALS: BP 166/77; PULSE 59; O2SAT 99
[2022-06-05 12:00] VITALS: PULSE 60; O2SAT 99
== END 2022-06-05 12:09 | disposition home or self-care (01) ==
PROVIDERS: Emergency Provider Family Medicine Addiction Medicine; PCP Internal Medicine
DX: H81.10 Benign paroxysmal vertigo, unspecified ear (principal); R07.9 Chest pain, unspecified; Z20.822 Contact with and (suspected) exposure to COVID-19
CPT/HCPCS: 36415; 70548; 70553; 71045; 80053; 82550; 83690; 83735; 84484; 85025; 85610; 85730; 87635; 93005; 93010; 99284; C9803

== ENCOUNTER → 2022-07-02 15:56 | Outpatient (CLI) | payer MEDICARE, OTHER, SELFPAY ==
[2022-07-02 18:35] LABS: Hemoglobin A1C% w Est Avg Glu 6.1 % (4.0-6.0)
[2022-07-02 19:22] LABS: Cholesterol 187 mg/dL (140-199); HDL Cholesterol 55 mg/dL (40-60); LDL Cholesterol Calculated 116 mg/dL (<100); Triglycerides 78 mg/dL (35-150)
[2022-07-02 19:58] LABS: Prostate Specific Antigen 2.08 ng/mL (0.10-4.00)
== END ==
PROVIDERS: PCP Internal Medicine; Referring Provider Internal Medicine; Visit Provider Internal Medicine
DX: N40.1 Benign prostatic hyperplasia with lower urinary tract symptoms (principal); K44.9 Diaphragmatic hernia without obstruction or gangrene
CPT/HCPCS: 36415; 80061; 83036; 84153

== ENCOUNTER → 2022-07-20 08:56 | Outpatient (CLI) | payer MEDICARE, OTHER, SELFPAY ==
[2022-07-20 10:09] LABS: COVID19 -Nasal RAPID Negative (Negative)
== END ==
PROVIDERS: PCP Internal Medicine; Visit Provider Surgery
DX: Z20.822 Contact with and (suspected) exposure to COVID-19 (principal); Z01.812 Encounter for preprocedural laboratory examination
CPT/HCPCS: 87635; C9803

== ENCOUNTER 2022-07-23 09:03 | Day surgery (SDC) | payer MEDICARE, OTHER, SELFPAY ==
--- NOTE | 2022-07-23 | PATH_ITS ---
[facility] Accession Number: [id number] No. of containers..02 Tissue . 01 Material submitted: . PART A: duodenum - DUODENAL ADENOMA BIOPSY PART B: gastrointestinal site - GASTRIC POLYPS . 01 Diagnosis: A. 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 Remaining fragments of duodenal mucosa with no significant diagnostic abnormality, including no intraepithelial lymphocytosis. No evidence of malignancy or high-grade dysplasia. . B. Stomach, Polyps, Biopsies: Fundic gland polyps. No evidence of Helicobacter organisms on H/E stain. Negative for intestinal metaplasia. Negative for dysplasia and malignancy. MRV 07/25/2022 1046 Local . 01 Electronically signed: . Natasha Anne MD, Pathologist NPI- [id number] . 01 Gross description: . Part A: DUODENAL ADENOMA BIOPSY: Received in formalin are 4 fragment(s) of savage, soft tissue measuring 0.3 x 0.2 x 0.1 cm to 0.3 x 0.1 x 0.1 cm submitted entirely in 1 cassette(s) Part B: GASTRIC POLYPS: Received in formalin are 2 fragment(s) of savage, soft tissue measuring 0.5 x 0.3 x 0.2 cm to 0.4 x 0.2 x 0.2 cm submitted entirely in 1 cassette(s) /CPE 07/24/2022 0717 Local . 01 Pathologist provided ICD-10: R13.10, D13.2 . 01 CPT . 027952, 729117 Specimen Comment: A courtesy copy of this report has been sent to [phone] Performed at: [facility] [address] [place] [address] [address], [place], [place] [id number] MD Jignesh Webb MD Phone: [phone]
[2022-07-23 09:28] VITALS: BMI 28.3
[2022-07-23] MEDS: LACTATED RINGERS 1,000 ML 42 ML IV (09:28)
--- NOTE | 2022-07-23 09:30 | PM.HP.1 ---
History of Present Illness History of Present Illness Date Patient Seen: 07/23/22 Time Patient Seen: 09:30 Chief complaint: EGD W/POSS BX Narrative: Patient is a very pleasant 77-year-old male who presented for repeat upper endoscopy. Patient had upper endoscopy 05/21/2022 where he was noted to have a Schatzki's ring that was dilated with biopsy. He also was noted to have a duodenal nodule consistent with a tubular adenoma. He is here for repeat today for further evaluation of his stricture and to ensure that the duodenal adenoma had been completely been removed. He states since his last upper endoscopy his swallowing has improved. He has not had any further episodes where food gets stuck. Patient History Medical History Allergic rhinitis Asthma, mild intermittent Dysphagia Essential hypertension Hepatitis A (~1968) Hiatal hernia Impaired fasting glucose Mixed hyperlipidemia Overweight Positive hepatitis C antibody test Surgical History Anesthesia Broken arm (~2004) History of tonsillectomy (~1949) Family & Social History Family History Father Parkinson's disease Mother No problems noted. Brother Prostate cancer Sister Ovarian cancer Grandfather Stroke Grandmother Stroke Grandfather Stroke Social History: household members spouse Tobacco & Substance use: Smoking Status Never smoker alcohol intake frequency holiday/special occasion Substance Use Type does not use Meds Home Medications and Allergies Home Medications Medication Instructions Recorded Confirmed Type triamcinolone acetonide 55 mcg 2 spray intranasal DAILY 03/06/22 07/23/22 History nasal spray aerosol (Nasacort) albuterol sulfate 90 mcg/actuation 1 puff inhalation Q4H PRN 07/02/22 07/23/22 Rx aerosol inhaler (ProAir HFA) shortness of breath or wheezing #8.5 grams fluticasone propionate 50 1 spray intranasal DAILY 07/02/22 07/23/22 History mcg/actuation nasal spray,suspension (Allergy Relief (fluticasone)) losartan 50 mg tablet 50 mg PO DAILY #90 tabs 07/02/22 07/23/22 Rx sildenafil 50 mg tablet 50 mg PO PRN PRN prn #18 tabs 07/02/22 07/23/22 Rx simvastatin 20 mg tablet 20 mg PO DAILY #90 tabs 07/02/22 07/23/22 Rx Allergies Allergy/AdvReac Type Severity Reaction Status Date / Time No Known Drug Allergies Allergy Verified 07/23/22 09:18 Review of Systems Review of Systems ROS: Yes All systems reviewed with the patient and are negative except as otherwise documented Exam Const General: cooperative, healthy appearing, comfortable, well developed, well groomed and No acute distress HENMT Head: atraumatic Resp Effort & Inspection: normal respiratory effort, able to speak in complete sentences and no audible wheezes Auscultation: clear to auscultation bilaterally Cardio Rate: regular rate Rhythm: regular rhythm GI Palpation: soft Percussion: normal to percussion Assessment & Plan Assessment & Plan narrative: 1. Duodenal adenoma 2. Schatzki's ring, improved dysphagia Repeat EGD, further recommendations to follow Time Spent With Patient Critical Care time: I spent a total of [] minutes of critical care time on this patient's care today; this time is exclusive of procedural time.
[2022-07-23 09:35] VITALS: BP 147/76; PULSE 65; RESP 16; TEMP 36.6; O2SAT 97
--- NOTE | 2022-07-23 09:49 | PM.OP.EGD ---
Operative Date/Time/Diagnoses Date of procedure: 07/23/22 Time of procedure: 09:40 Procedure Notes Procedure in detail: Surgeon: Leslee Koenig DO Procedure: Esophagogastroduodenoscopy with polypectomy and biopsy Preoperative diagnosis: 1. Duodenal adenoma 2. Schatzki's ring Postoperative diagnosis: 1. Patent Schatzki's ring 2. 3 mm nodule in the 2nd portion of duodenum consistent with prior duodenal adenoma 3. Small hiatal hernia 4. Multiple gastric polyps, biopsied Medications: Monitored anesthesia care Preanesthesia Assessment An H and P was performed/updated and the Px?s ASA class is 2. The procedure was discussed in detail with the patient. The potential risks and complications including infection, bleeding, missed lesions, perforation, need for surgery in case of perforation, prolonged hospital stay, and were explained. A brief question and answer period was allotted and once all questions were answered, informed consent was obtained. The patient was brought back to the procedure room and placed on standard monitoring. The patient?s vital signs were monitored continuously throughout the entire procedure. Prior to starting, a timeout was performed to confirm the patient?s identity, allergies, medications, and procedure. Procedure in detail The patient was placed in left lateral decubitus position and a bite block was inserted. The tip of the upper endoscope was placed into the mouth and advanced without difficulty under direct visualization into the esophagus. Esophagus: Schatzki's ring noted in the lower 3rd of the esophagus, this appeared quite, no further dilations were performed. Lower 3rd of the esophagus was mildly tortuous. Stomach: 3 cm hiatal hernia was noted. Multiple gastric polyps were noted throughout the stomach. These were again biopsied. Previously seen gastritis appears to be improving. Duodenum: 3 mm nodule noted in the 2nd portion of the duodenum consistent with prior duodenal adenoma. Removed with cold forceps. The patient tolerated the procedure well and will be brought back to the recovery area to be discharged once criteria are met. Complications There were no complications and estimated blood loss was minimal. Recommendations: Resume previous diet Continue outPx medications Follow up pathology results Repeat EGD based on pathology Office follow up if persistent symptoms An emergency contact number was given to the patient for any complications related to the procedure
[2022-07-23 09:55] VITALS: BP 112/66; PULSE 66; RESP 13; TEMP 36.3; O2SAT 95
[2022-07-23 09:59] VITALS: BP 109/63; PULSE 62; RESP 14; O2SAT 95
[2022-07-23 10:04] VITALS: BP 111/67; PULSE 66; RESP 19; TEMP 36.5; O2SAT 97
[2022-07-23 10:10] VITALS: BP 125/75; PULSE 63; RESP 20; TEMP 36.4; O2SAT 96
--- NOTE | 2022-07-23 10:26 | SUR.PHASEII ---
Assumed care from Anam LEWIS. pt to be discharged and states he feels fine.
== END 2022-07-23 10:28 | disposition home or self-care (01) ==
PROVIDERS: PCP Internal Medicine; Referring Provider Student in an Organized Health Care Education/Training Program; Visit Provider Student in an Organized Health Care Education/Training Program
PROC: 0DJ08ZZ Inspection of Upper Intestinal Tract, Via Natural or Artificial Opening Endoscopic (ICD-10-PCS; CPT 43235; principal; 2022-07-23 10:00)
DX: D13.2 Benign neoplasm of duodenum (principal); K22.2 Esophageal obstruction; R13.19 Other dysphagia; K44.9 Diaphragmatic hernia without obstruction or gangrene; I10 Essential (primary) hypertension; J45.909 Unspecified asthma, uncomplicated; K31.7 Polyp of stomach and duodenum
CPT/HCPCS: 43239; J2704; J3010

== ENCOUNTER 2023-01-16 09:01 | Day surgery (SDC) | payer MEDICARE, OTHER, SELFPAY ==
--- NOTE | 2023-01-16 | PATH_ITS ---
[facility] Accession Number: [id number] No. of containers..01 Tissue . 01 Material submitted: . duodenum - DUODENAL BIOPSY . 01 Diagnosis: Duodenum, Biopsy: Small bowel mucosa with no diagnostic abnormality. Negative for active inflammation, features of sprue, dysplasia, or malignancy. [place] 01/21/2023 1200 Local . 01 Electronically signed: . Selvin Patricia MD, PhD, Pathologist NPI- [id number] . 01 Gross description: . DUODENAL BIOPSY: Received in formalin is 1 fragment(s) of savage, soft tissue measuring 0.2 x 0.2 x 0.1 cm submitted entirely in 1 cassette(s) /CPE 01/17/2023 0722 Local . 01 Pathologist provided ICD-10: K31.7, Z87.19 . 01 CPT . 059336 Specimen Comment: A courtesy copy of this report has been sent to [phone] Performed at: 01 [facility] [address] [place] [address] [address], [place], [place] [id number] MD Jignesh Webb MD Phone: [phone]
[2023-01-16 09:26] VITALS: BP 151/74; PULSE 68; RESP 18; TEMP 35.8; O2SAT 98; BMI 28.5
[2023-01-16] MEDS: LACTATED RINGERS 1,000 ML 42 ML IV (09:35)
--- NOTE | 2023-01-16 10:07 | PM.HP.1 ---
History of Present Illness History of Present Illness Date Patient Seen: 01/16/23 Chief complaint: EGD w/poss bx Narrative: History duodenal adenoma and substernal dysphagia [facility] Medical History Allergic rhinitis Asthma, mild intermittent Dysphagia Essential hypertension Hepatitis A (~1968) Hiatal hernia Impaired fasting glucose Mixed hyperlipidemia Overweight Positive hepatitis C antibody test Surgical History Anesthesia Broken arm (~2004) History of tonsillectomy (~1949) Family History Father Parkinson's disease Mother No problems noted. Brother Prostate cancer Sister Ovarian cancer Grandfather Stroke Grandmother Stroke Grandfather Stroke Social History household members: spouse Smoking Status: Never smoker alcohol intake: current Meds Home Medications and Allergies Home Medications Medication Instructions Recorded Confirmed Type triamcinolone acetonide 55 mcg 2 spray intranasal DAILY 03/06/22 01/16/23 History nasal spray aerosol (Nasacort) albuterol sulfate 90 mcg/actuation 1 puff inhalation Q4H PRN 07/02/22 01/16/23 Rx aerosol inhaler (ProAir HFA) shortness of breath or wheezing #8.5 grams fluticasone propionate 50 1 spray intranasal DAILY 07/02/22 01/16/23 History mcg/actuation nasal spray,suspension (Allergy Relief (fluticasone)) losartan 50 mg tablet 50 mg PO DAILY #90 tabs 07/02/22 01/16/23 Rx sildenafil 50 mg tablet 50 mg PO PRN PRN prn #18 tabs 07/02/22 01/16/23 Rx simvastatin 20 mg tablet 20 mg PO DAILY #90 tabs 07/02/22 01/16/23 Rx Allergies Allergy/AdvReac Type Severity Reaction Status Date / Time No Known Drug Allergies Allergy Verified 07/23/22 09:18 Exam Vital Signs (past 8 hours): - 01/16/23 09:26 Temperature 96.4 F L Pulse Rate 68 Respiratory Rate 18 Blood Pressure 151/74 H Pulse Oximetry 98 Oxygen Delivery Method Room Air Oxygen Delivery Method Room Air Narrative Exam Narrative: Oropharynx free of lesions Chest clear to auscultation percussion Cardiac exam reveals no S3 or murmur Assessment & Plan Assessment & Plan narrative: 1. History of duodenal adenoma with 1 of 4 fragments showing residual adenoma 6 months ago need for follow-up EGD. 2. History of intermittent substernal dysphagia with known Schatzki's ring that was not dilated 6 months ago. Need for follow-up dilation. Risks, benefits, alternatives have been explained
--- NOTE | 2023-01-16 10:09 | PM.OP.EGD ---
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 The video upper scope was placed into the oropharynx and with the patient's help swallowed into the esophagus. The esophagus stomach and duodenum were carefully examined. On withdrawal retroflexed view the GE junction was performed. The scope was removed. The patient tolerated procedure well. Blood loss none Complications none Sedation mac Findings 1. Mild though not wide-open Schatzki's ring at the GE junction. Savary dilation to [address] [place] performed without difficulty 2. 3 cm hiatal hernia 4. Multiple fundic gland polyps previously biopsied 5. One small partially white polyp it D to. This appeared more as a sand [place] than residual duodenal adenoma however was biopsied and removed completely. We will await biopsy reports which will help determine follow-up interval. He should also contact us within 1-2 months to let us know how he is doing with his dysphagia.
[2023-01-16 10:11] VITALS: BP 103/56; PULSE 64; RESP 16; TEMP 36.5; O2SAT 88
[2023-01-16 10:15] VITALS: BP 98/68; PULSE 59; RESP 15; O2SAT 92
[2023-01-16 10:19] VITALS: BP 109/56; PULSE 60; RESP 16; TEMP 36.2; O2SAT 93
[2023-01-16 10:21] VITALS: BP 107/59; PULSE 59; RESP 18; O2SAT 96
[2023-01-16 10:57] VITALS: BP 138/75; PULSE 59; RESP 16; TEMP 36.1; O2SAT 96
== END 2023-01-16 10:45 | disposition home or self-care (01) ==
PROVIDERS: PCP Internal Medicine; Referring Provider Internal Medicine Gastroenterology; Visit Provider Internal Medicine Gastroenterology
PROC: 0DJ08ZZ Inspection of Upper Intestinal Tract, Via Natural or Artificial Opening Endoscopic (ICD-10-PCS; CPT 43235; principal; 2023-01-16 10:00)
DX: R13.10 Dysphagia, unspecified (principal); K44.9 Diaphragmatic hernia without obstruction or gangrene; K22.2 Esophageal obstruction; K31.7 Polyp of stomach and duodenum
CPT/HCPCS: 43248; 43239; J2704

== ENCOUNTER → 2023-02-01 15:51 | Outpatient (CLI) | payer MEDICARE, OTHER, SELFPAY ==
[2023-02-01 20:34] LABS: BUN Creatinine Ratio 18.9 (6-22); Blood Urea Nitrogen 20 mg/dL (9-20); Calcium 8.6 mg/dL (8.4-10.2); Carbon Dioxide 23 mmol/L (22-32); Chloride 103 mmol/L (98-107); Estimated Glomerular Filt Rate > 60 mL/min (>60); Glucose 72 mg/dL (80-110); HEMOLYSIS 42 (0-50); Potassium 3.9 mmol/L (3.4-5.1); Sodium 137 mmol/L (137-145)
[2023-02-04 03:29] LABS: Labcorp Hemoglobin (Hb) A1c 6.3 % (4.8-5.6)
== END ==
PROVIDERS: PCP Internal Medicine; Referring Provider Internal Medicine; Visit Provider Internal Medicine
DX: I10 Essential (primary) hypertension (principal); R73.01 Impaired fasting glucose
CPT/HCPCS: 36415; 80048; 83036

== ENCOUNTER → 2023-09-12 16:19 | Outpatient (CLI) | payer MEDICARE, OTHER, SELFPAY ==
[2023-09-12 19:48] LABS: Aspartate Aminotransferase 30 IU/L (17-59); BUN Creatinine Ratio 20.2 (6-22); Blood Urea Nitrogen 20 mg/dL (9-20); Calcium 9.2 mg/dL (8.4-10.2); Carbon Dioxide 28 mmol/L (22-32); Chloride 101 mmol/L (98-107); Cholesterol 164 mg/dL (140-199); Estimated Glomerular Filt Rate > 60 mL/min (>60); Glucose 86 mg/dL (80-110); HDL Cholesterol 54 mg/dL (40-60); HEMOLYSIS < 15 (0-50); LDL Cholesterol Calculated 98 mg/dL (<100); Potassium 4.7 mmol/L (3.4-5.1); Sodium 137 mmol/L (137-145); Triglycerides 62 mg/dL (35-150)
[2023-09-13 16:16] LABS: Hemoglobin A1C% w Est Avg Glu 5.9 % (4.0-6.0)
[2023-09-13 19:46] LABS: Prostate Specific Antigen 2.66 ng/mL (0.10-4.00)
== END ==
PROVIDERS: PCP Internal Medicine; Referring Provider Internal Medicine; Visit Provider Internal Medicine
DX: N40.1 Benign prostatic hyperplasia with lower urinary tract symptoms (principal); R73.01 Impaired fasting glucose; N13.8 Other obstructive and reflux uropathy; I10 Essential (primary) hypertension; E78.2 Mixed hyperlipidemia
CPT/HCPCS: 36415; 80048; 80061; 83036; 84153; 84450

== ENCOUNTER → 2024-02-19 16:25 | Outpatient (CLI) | payer MEDICARE, OTHER, SELFPAY ==
[2024-02-19 17:18] LABS: Hematocrit 44.7 % (41-53); Hemoglobin 15.5 g/dL (13.5-17.5); Mean Corpuscular HGB Conc 34.6 % (30-36); Mean Corpuscular Hemoglobin 29.8 PG (26-34); Mean Corpuscular Volume 85.9 fL (80-100); Platelet Count 179 X10^3/uL (150-400); Red Cell Distribution Width 13.4 % (11.6-14.8)
[2024-02-19 17:50] LABS: Alanine Aminotransferase 17 IU/L (<50); Albumin 4.2 g/dL (3.5-5.0); Albumin Globulin Ratio 1.4 (1.0-2.8); Alkaline Phosphatase 56 U/L (38-126); Aspartate Aminotransferase 28 IU/L (17-59); BUN Creatinine Ratio 20.3 (6-22); Bilirubin Total 0.6 mg/dL (0.2-1.3); Blood Urea Nitrogen 24 mg/dL (9-20); Calcium 8.9 mg/dL (8.4-10.2); Carbon Dioxide 27 mmol/L (22-32); Chloride 105 mmol/L (98-107); Cholesterol 161 mg/dL (140-199); Estimated Glomerular Filt Rate > 60 mL/min (>60); Globulin 2.9 g/dL (1.7-4.1); Glucose 81 mg/dL (80-110); HDL Cholesterol 59 mg/dL (40-60); HEMOLYSIS 32 (0-50); LDL Cholesterol Calculated 83 mg/dL (<100); Sodium 138 mmol/L (137-145); Total Protein 7.1 g/dL (6.3-8.2); Triglycerides 96 mg/dL (35-150)
[2024-02-19 17:55] LABS: Hemoglobin A1C% w Est Avg Glu 5.7 % (4.0-6.0)
[2024-02-19 18:15] LABS: TSH w/ Reflex to FT4 1.46 uIU/mL (0.47-4.68)
[2024-02-19 18:35] LABS: Vitamin B12 334 pg/mL (239-931)
== END ==
PROVIDERS: PCP Internal Medicine; Referring Provider Internal Medicine; Visit Provider Internal Medicine
DX: E78.2 Mixed hyperlipidemia (principal); I10 Essential (primary) hypertension; R73.01 Impaired fasting glucose; E53.8 Deficiency of other specified B group vitamins
CPT/HCPCS: 36415; 80053; 80061; 82607; 83036; 84443; 85027

== ENCOUNTER → 2024-02-20 13:30 | Outpatient (CLI) | payer MEDICARE, OTHER, SELFPAY | PROVIDERS: PCP Internal Medicine; Referring Provider Internal Medicine; Visit Provider Internal Medicine | DX: E53.8 Deficiency of other specified B group vitamins (principal) | CPT/HCPCS: 36415; 83921 ==

== ENCOUNTER → 2025-02-23 14:15 | Outpatient (CLI) | payer MEDICARE, OTHER, SELFPAY ==
[2025-02-23 15:01] LABS: Hemoglobin A1C% w Est Avg Glu 5.7 % (4.0-6.0)
[2025-02-23 15:29] LABS: Aspartate Aminotransferase 27 IU/L (17-59); BUN Creatinine Ratio 17.2 (6-22); Blood Urea Nitrogen 20 mg/dL (9-20); Calcium 9.5 mg/dL (8.4-10.2); Carbon Dioxide 24 mmol/L (22-32); Chloride 105 mmol/L (98-107); Cholesterol 182 mg/dL (140-199); Estimated Glomerular Filt Rate > 60 mL/min (>60); Glucose 82 mg/dL (70-99); HDL Cholesterol 56 mg/dL (40-60); HEMOLYSIS 22 (0-50); LDL Cholesterol Calculated 110 mg/dL (<100); Potassium 4.2 mmol/L (3.4-5.1); Sodium 137 mmol/L (137-145); Triglycerides 78 mg/dL (35-150)
[2025-02-23 15:59] LABS: Prostate Specific Antigen 2.41 ng/mL (0.10-4.00)
[2025-02-23 16:19] LABS: Vitamin B12 Reflex MMA if <400 817 pg/mL (239-931)
== END ==
PROVIDERS: PCP Internal Medicine; Referring Provider Internal Medicine; Visit Provider Internal Medicine
DX: R73.01 Impaired fasting glucose (principal); E78.2 Mixed hyperlipidemia; N40.1 Benign prostatic hyperplasia with lower urinary tract symptoms; E53.8 Deficiency of other specified B group vitamins; N13.8 Other obstructive and reflux uropathy
CPT/HCPCS: 36415; 80048; 80061; 82607; 83036; 84153; 84450